=== PATIENT | female | born 1975 | race Caucasian/White ===

== ENCOUNTER 2021-04-16 09:53 | Emergency (ER) | payer OTHER ==
[2021-04-16 10:15] VITALS: BP 151/86; PULSE 85; TEMP 98.1; BMI 28.2
[2021-04-16] MEDS ORDERED: BACITRACIN 15 GM TUBE TOPICAL OINTMENT TP ONE (11:10)
[2021-04-16] MEDS ORDERED: BACITRACIN 15 GM TUBE TOPICAL OINTMENT ONE (11:14)
== END 2021-04-16 11:38 ==
LOC: JER 09:53 → JERFT 09:53
DX: L03.011 Cellulitis of right finger (principal)
CPT/HCPCS: 73140-TC-RT-FY; 87070; 87186; 87205; 99284-25